=== PATIENT | male | born 1935 | race Caucasian/White ===

== ENCOUNTER 2020-08-19 15:20 | Outpatient (CLI) | payer MEDICARE, OTHER ==
--- NOTE | 2020-08-20 10:02 | Ultrasound Report ---
PROCEDURE: Bladder INDICATIONS: LUTS TECHNIQUE: Real-time scanning was performed of the bladder, with image documentation. COMPARISON: None FINDINGS: Bladder: Pre-void bladder volume is 150 mL. Post-void residual is 4 mL. Pre-void images demonstrat e no intraluminal masses or stones. On pre-void images, both the right and left ureteral jets are no steven with color Doppler interrogation. (Of note, ureteral jets may not be detectable in up to 25% of cases due to insufficient differences in specific gravity between ureteral and bladder urine). Miscellaneous: No free pelvic fluid. Prostate measures 4.5 x 3.8 x 5.7 cm. IMPRESSION: 1. Urinary bladder is sonographically normal. 2. Prostate hypertrophy. Reviewed by: Keiry Bean MD, PhD on 08/20/2020 10:01 AM [facility] Approved by: Keiry Bean MD, PhD on 08/20/2020 10:01 AM [facility] Station ID: [id number]
== END 2020-08-19 15:21 | disposition home or self-care (01) ==
LOC: DI 15:20
PROVIDERS: ATTEND Internal Medicine
DX: N40.1 Benign prostatic hyperplasia with lower urinary tract symptoms (principal)
CPT/HCPCS: 76857